=== PATIENT | female | born 1990 | race African-American/Black ===

== ENCOUNTER 2017-08-21 20:03 | Emergency (ER) | payer MEDICAID ==
[~2017-08-21] VITALS: Ht 160 cm; Wt 66.7 kg
[~2017-08-21 20:03] MED LIST: QUETIAPINE FUMA25 MG ORAL; ZOLOFT25 MG ORAL
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
[2017-08-21] MEDS ORDERED: Ketorolac 30mg Inj IM ONE (21:15)
[2017-08-21 22:02] VITALS: BP 136/80
[2017-08-21 22:03] VITALS: BP 136/80
--- NOTE | 2017-08-22 11:45 | Diagnostic Imaging Report ---
Indication: Chest pain Comparison: None A single view chest radiograph was obtained. Findings: Cardiomediastinal appearance is within normal limits for age. Pulmonary vascularity is appropriate. The diaphragmatic contour is smooth and costophrenic angles are sharp. No pleural effusions are identified. The bones are unremarkable. Impression: No acute findings
== END 2017-08-22 01:00 | disposition home or self-care (01) ==
LOC: EDBD 20:03 → EMR 23:51
DX: R07.81 Pleurodynia (principal); F31.9 Bipolar disorder, unspecified
CPT/HCPCS: 71045; 96372; 99283; J1885

== ENCOUNTER 2017-12-28 11:29 | Emergency (ER) | payer MEDICAID ==
[~2017-12-28] VITALS: Ht 157.5 cm; Wt 61.2 kg
[2017-12-28 11:55] VITALS: BP 116/70
[2017-12-28] MEDS ORDERED: TYLENOL325 MG ORAL (12:58)
[2017-12-28 13:07] VITALS: BP 121/74
--- NOTE | 2017-12-28 13:07 | Diagnostic Imaging Report ---
EXAM: CT Head Without Intravenous Contrast CLINICAL HISTORY: TRAUMA TECHNIQUE: Axial computed tomography images of the head/brain without intravenous contrast. CTDI is 70.38 mGy and DLP is 1326 mGy-cm One or more of the following dose reduction techniques were used: automated exposure control, adjustment of the mA and/or kV according to patient size, use of iterative reconstruction technique. COMPARISON: No relevant prior studies available. FINDINGS: Brain: Unremarkable. No hemorrhage. No significant white matter disease. No edema. Ventricles: Unremarkable. No ventriculomegaly. Bones/joints: Right parietal skull exophytic osteoma. No acute fracture. Soft tissues: Right lateral scalp muscular edema. Sinuses: Unremarkable as visualized. No acute sinusitis. Mastoid air cells: Unremarkable as visualized. No mastoid effusion. IMPRESSION: 1. Right lateral scalp muscular edema. No skull fracture. 2. No acute intracranial abnormality.
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
== END 2017-12-28 13:09 | disposition home or self-care (01) ==
LOC: EMR 12:20
DX: S09.8XXA Other specified injuries of head, initial encounter (principal); S00.83XA Contusion of other part of head, initial encounter; Y04.2XXA Assault by strike against or bumped into by another person, initial encounter; Y92.9 Unspecified place or not applicable
CPT/HCPCS: 70450; 99284